=== PATIENT | female | born 1980 | race Caucasian/White ===

== ENCOUNTER → 2017-08-30 | Emergency (ER) | payer OTHER ==
[~2017-08-30] VITALS: Ht 162.6 cm; Wt 62.6 kg
== END | disposition home or self-care (01) ==
LOC: ER 08:58
DX: J45.998 Other asthma (principal); J06.9 Acute upper respiratory infection, unspecified

== ENCOUNTER 2018-08-17 08:35 | Emergency (ER) | payer OTHER ==
[~2018-08-17] VITALS: Ht 162.6 cm; Wt 68.0 kg
== END 2018-08-17 13:22 | disposition home or self-care (01) ==
LOC: ER 08:35
DX: M54.5 Low back pain (principal)

== ENCOUNTER 2024-08-12 14:08 | Emergency (ER) | payer OTHER ==
[~2024-08-12] VITALS: Ht 167.6 cm; Wt 72.6 kg
[2024-08-12] MEDS ORDERED: AVAPRO150 MG PO (14:41)
[2024-08-12] MEDS ORDERED: SYNTHROID50 MCG (14:42)
== END 2024-08-12 16:44 | disposition home or self-care (01) ==
LOC: ER 14:09
DX: E03.9 Hypothyroidism, unspecified (principal); Z88.6 Allergy status to analgesic agent

== ENCOUNTER → 2024-08-29 | Emergency (ER) | payer OTHER ==
[~2024-08-29] VITALS: Ht 165.1 cm; Wt 70.3 kg
[~2024-08-29] MED LIST: AVAPRO150 MG PO; BUDESONIDE 0.5 MG/2 ML AMPUL.NEB IH ONE; BUDESONIDE 0.5 MG/2 ML AMPUL.NEB IH STA; HYDROCODONE/CHLORPHEN P-STIREX 5 ML ML PO STA; LEVALBUTEROL HCL 1.25 MG/3 ML SOLUTION IH ONE; LEVALBUTEROL HCL 1.25 MG/3 ML SOLUTION IH STA; SYNTHROID50 MCG
[2024-08-29 07:45] VITALS: BP 128/77; O2SAT 99
== END | disposition home or self-care (01) ==
LOC: ER 07:24
DX: J10.1 Influenza due to other identified influenza virus with other respiratory manifestations (principal); R05.9 Cough, unspecified; I10 Essential (primary) hypertension; E03.8 Other specified hypothyroidism; Z88.6 Allergy status to analgesic agent